=== PATIENT | female | born 1990 | race Caucasian/White ===

== ENCOUNTER 2019-09-09 10:07 | Emergency (ER) | payer OTHER, SELFPAY ==
[2019-09-09 10:15] VITALS: BP 111/57; PULSE 80; RESP 18; TEMP 37.2; O2SAT 100
--- NOTE | 2019-09-09 10:28 | ED.UPPEXIN ---
HPI - Extremity Injury (Upper) General Chief Complaint: Extremity Injury, Upper Stated Complaint: Left Shoulder Pain History of Present Illness HPI narrative: This is a 29-year-old female comes in complaining of left shoulder pain patient states that it hurts when she lifts her shoulder up is been going on for the past couple of days. Patient states that she has had this before and she knows it to be bursitis. Patient states that it kept her up all night and she is taken Tylenol and ibuprofen. Patient states that she needs to get some Toradol which helps with the pain. Related Data Allergies Allergy/AdvReac Type Severity Reaction Status Date / Time No Known Allergies Allergy Verified 09/09/19 10:12 Review of Systems Review of Systems: Narrative: CONSTITUTIONAL: Denies fever, chills, or sweats. EYES: Denies visual changes, redness, or discharge. ENT: Denies rhinorrhea, congestion, sore throat, or otalgia. CARDIOVASCULAR:Denies chest pain, palpitations, or edema. RESPIRATORY: Denies cough or dyspnea. GASTROINTESTINAL: Denies abdominal pain, nausea, vomiting, or diarrhea. GENITOURINARY: Denies dysuria or hematuria. SKIN:[Denies rash or itching. MUSCULOSKELETAL:Denies back pain, positive left shoulder joint pain, or myalgia. NEUROLOGIC: Denies headache, numbness, or weakness. PSYCHIATRIC:Denies anxiety or depression [facility]LY [facility] Family History Family History (Updated 03/20/19 @ 16:55 by DOCTOR UNKNOWN) Grandparent Family history of hypercholesterolemia Hypertension Family history of cardiovascular disease Family history of kidney disease Malignant neoplasm of prostate Mother Depression Hypertension Family history of cardiovascular disease Social History Social History Smoking status: Never smoker Second hand tobacco smoke exposure: No Alcohol intake: current Gender identity (if verbalized by the patient): Female Comments At time as signature, I have reviewed and agree with nursing past medical, social, surgical and family history. Please see nursing chart for further information. There is no relevant family history pertinent to the presenting complaint. Exam Narrative: Exam Narrative: GENERAL:Well-appearing, well-nourished, and in no acute distress. HEAD:Normocephalic, atraumatic. EYES: PERRLA and EOMI. ENT: Nares clear, no rhinorrhea or epistaxis. Mucous membranes moist. NECK: Supple. CHEST: Clear to auscultation. No respiratory distress. HEART: Regular rate and rhythm. No murmur heard. Normal peripheral pulses. ABDOMEN: Soft, nontender, nondistended, normal active bowel sounds. EXTREMITIES: Decreased left shoulder range of motion patient is unable to lift her arm rotated due to pain. No edema. SKIN: Warm, dry, no rash. NEURO: No focal deficits. Alert and oriented x3. 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 Patient also states that she will use methylprednisone and when she finishes that then she will start using the Toradol Vital Signs Vital signs: Vital Signs Temperature 99.0 F 09/09/19 10:15 Pulse Rate 80 09/09/19 10:15 Respiratory Rate 18 09/09/19 10:15 Blood Pressure 111/57 L 09/09/19 10:15 Pulse Oximetry 100 09/09/19 10:15 Temperature 99.0 F 09/09/19 10:15 Pulse Rate 80 09/09/19 10:15 Respiratory Rate 18 09/09/19 10:15 Blood Pressure 111/57 L 09/09/19 10:15 Pulse Oximetry 100 09/09/19 10:15 MDM - Extremity Injury (Upper) Differential Diagnosis Differential diagnosis: Likely dislocation of shoulder and other (Shoulder strain, bursitis, shoulder fracture) Discharge Plan Discharge Clinical Impression: Bursitis of left shoulder Patient Disposition: Home, Self-Care Condition: Stable Instructions: Ant
[2019-09-09] MEDS: KETOROLAC (*BKC) 60 MG/2 ML VIAL IM (10:32)
== END 2019-09-09 10:56 | disposition home or self-care (01) ==
PROVIDERS: Emergency Provider Nurse Practitioner Family; PCP Family Medicine
DX: M75.52 Bursitis of left shoulder (principal)
CPT/HCPCS: 96372; 99213; G0463; J1885

== ENCOUNTER → 2020-03-22 08:05 | Outpatient (CLI) | payer OTHER, SELFPAY ==
--- NOTE | ~2020-03-22 | XR_ITS ---
EXAMINATION: XR knee RT 2V DATE: 03/22/2020 08:53 INDICATION: Multiple joint pain. TECHNIQUE: 2 views of right knee were obtained. COMPARISON: None. FINDINGS: Bone alignment is normal. No fracture. Joint spaces are well maintained. There is no knee j oint effusion. IMPRESSION: 1. Normal right knee. Reviewed, dictated and finalized at location A. IMPRESSION: 1. Normal right knee.
--- NOTE | ~2020-03-22 | XR_ITS ---
EXAMINATION: XR shoulder RT min 2V DATE: 03/22/2020 08:53 INDICATION: Multiple joint pain. TECHNIQUE: 2 views of right shoulder were obtained. COMPARISON: None. FINDINGS: Bone alignment is normal. No fracture. There is mild acromioclavicular joint osteoarthritis . Glenohumeral joint is normal. IMPRESSION: 1. Mild right acromioclavicular joint osteoarthritis. Reviewed, dictated and finalized at location A.
--- NOTE | ~2020-03-22 | XR_ITS ---
EXAMINATION: XR foot LT 2V DATE: 03/22/2020 08:54 INDICATION: Multiple joint pain. TECHNIQUE: 2 views of left foot were obtained. COMPARISON: None. FINDINGS: Bone alignment is normal. No fracture. There is mild talonavicular joint osteoarthritis. IMPRESSION: 1. Mild talonavicular joint osteoarthritis. Reviewed, dictated and finalized at location A.
--- NOTE | ~2020-03-22 | XR_ITS ---
EXAMINATION: XR wrist RT 2V DATE: 03/22/2020 08:53 INDICATION: Multiple joint pain. TECHNIQUE: 2 views of right wrist were obtained. COMPARISON: None. FINDINGS: Bone alignment is normal. No fracture. Joint spaces are well maintained. IMPRESSION: 1. Normal right wrist. Reviewed, dictated and finalized at location A. IMPRESSION: 1. Normal right wrist.
--- NOTE | ~2020-03-22 | XR_ITS ---
EXAMINATION: XR elbow LT 2V DATE: 03/22/2020 08:53 INDICATION: Multiple joint pain. TECHNIQUE: 2 views of left elbow were obtained. COMPARISON: None. FINDINGS: Bone alignment is normal. No fracture. Joint spaces are well maintained. There is no elbow joint effusion. IMPRESSION: 1. Normal left elbow. Reviewed, dictated and finalized at location A. IMPRESSION: 1. Normal left elbow.
--- NOTE | ~2020-03-22 | XR_ITS ---
EXAMINATION: XR hand LT 2V DATE: 03/22/2020 08:54 INDICATION: Multiple joint pain. TECHNIQUE: 2 views of left hand were obtained. COMPARISON: None. FINDINGS: Bone alignment is normal. No fracture. Joint spaces are well maintained. IMPRESSION: 1. Normal left hand. Reviewed, dictated and finalized at location A. IMPRESSION: 1. Normal left hand.
--- NOTE | ~2020-03-22 | XR_ITS ---
EXAMINATION: XR knee LT 2V DATE: 03/22/2020 08:53 INDICATION: Multiple joint pain. TECHNIQUE: 2 views of left knee were obtained. COMPARISON: None. FINDINGS: Bone alignment is normal. No fracture. Joint spaces are well maintained. There is no knee j oint effusion. IMPRESSION: 1. Normal left knee. Reviewed, dictated and finalized at location A. IMPRESSION: 1. Normal left knee.
--- NOTE | ~2020-03-22 | XR_ITS ---
EXAMINATION: XR elbow RT 2V DATE: 03/22/2020 08:53 INDICATION: Multiple joint pain. TECHNIQUE: 2 views of right elbow were obtained. COMPARISON: None. FINDINGS: Bone alignment is normal. No fracture. Joint spaces are well maintained. There is no elbow joint effusion. IMPRESSION: 1. Normal right elbow. Reviewed, dictated and finalized at location A. IMPRESSION: 1. Normal right elbow.
--- NOTE | ~2020-03-22 | XR_ITS ---
EXAMINATION: XR wrist LT 2V DATE: 03/22/2020 08:53 INDICATION: Multiple joint pain. TECHNIQUE: 2 views of left wrist were obtained. COMPARISON: None. FINDINGS: Bone alignment is normal. No fracture. Joint spaces are well maintained. IMPRESSION: 1. Normal left wrist. Reviewed, dictated and finalized at location A. IMPRESSION: 1. Normal left wrist.
--- NOTE | ~2020-03-22 | XR_ITS ---
EXAMINATION: XR ankle LT 2V DATE: 03/22/2020 08:53 INDICATION: Multiple joint pain. TECHNIQUE: 2 views of left ankle were obtained. COMPARISON: None. FINDINGS: Bone alignment is normal. No fracture. There is mild midfoot osteoarthritis. IMPRESSION: 1. Mild midfoot osteoarthritis. Reviewed, dictated and finalized at location A.
--- NOTE | ~2020-03-22 | XR_ITS ---
EXAMINATION: XR hand RT 2V DATE: 03/22/2020 08:53 INDICATION: Multiple joint pain. TECHNIQUE: 2 views of right hand were obtained. COMPARISON: None. FINDINGS: Bone alignment is normal. No fracture. Joint spaces are well maintained. IMPRESSION: 1. Normal right hand. Reviewed, dictated and finalized at location A. IMPRESSION: 1. Normal right hand.
--- NOTE | ~2020-03-22 | XR_ITS ---
EXAMINATION: XR shoulder LT min 2V DATE: 03/22/2020 08:53 INDICATION: Multiple joint pain. TECHNIQUE: 2 views of left shoulder were obtained. COMPARISON: None. FINDINGS: Bone alignment is normal. No fracture. Joint spaces are normal. IMPRESSION: 1. Normal left shoulder. Reviewed, dictated and finalized at location A. IMPRESSION: 1. Normal left shoulder.
--- NOTE | ~2020-03-22 | XR_ITS ---
EXAMINATION: XR foot RT 2V DATE: 03/22/2020 08:53 INDICATION: Multiple joint pain. TECHNIQUE: 2 views of right foot were obtained. COMPARISON: None. FINDINGS: Bone alignment is normal. No fracture. There is mild talonavicular joint osteoarthritis. IMPRESSION: 1. Mild talonavicular joint osteoarthritis. Reviewed, dictated and finalized at location A.
--- NOTE | ~2020-03-22 | XR_ITS ---
EXAMINATION: XR ankle RT 2V DATE: 03/22/2020 08:53 INDICATION: Multiple joint pain. TECHNIQUE: 2 views of right ankle were obtained. COMPARISON: None. FINDINGS: Bone alignment is normal. No fracture. There is mild osteoarthritis of talonavicular joint. IMPRESSION: 1. Mild osteoarthritis of talonavicular joint. Reviewed, dictated and finalized at location A.
== END ==
PROVIDERS: Visit Provider Internal Medicine Rheumatology
DX: M25.50 Pain in unspecified joint (principal); M19.072 Primary osteoarthritis, left ankle and foot; M19.071 Primary osteoarthritis, right ankle and foot; M19.011 Primary osteoarthritis, right shoulder
CPT/HCPCS: 73030; 73070; 73100; 73120; 73560; 73600; 73620

== ENCOUNTER 2020-06-14 10:39 | Day surgery (SDC) | payer OTHER, SELFPAY ==
[2020-06-14] VITALS (12 sets, daily range): BP systolic 96–122; BP diastolic 52–74; PULSE 65–90; RESP 13–20; TEMP 36.1–37.2; O2SAT 100
--- NOTE | ~2020-06-14 | US_ITS ---
EXAMINATION: US pelvic complete w TV DATE: 06/14/2020 13:46 INDICATION: Right lower quadrant pain Comparison:No prior studies for comparison. TECHNIQUE: Multiple transabdominal and endovaginal sonographic images of the pelvis performed. FINDINGS: The uterus measures 6.9 x 3.2 x 4.3 cm. The endometrial complex measures 4 mm. There is an IUD present in expected position. There is a calcified mass contiguous with the uterus measuring 2.5 x 2.4 x 2.2 cm, likely an exophytic fibroid. The right ovary measures 10.5 x 5.6 x 11.2 cm and the left ovary measures 3 x 2 x 3.5 cm. There are small follicles in each ovary. There are right ovarian cysts, largest on the right measuring up to 7. 4 cm. There is an echogenic mass in the left ovary with posterior acoustic enhancement measuring 2.3 cm greatest dimension. There is no free fluid in the pelvis. There are no abnormal masses seen on either side. IMPRESSION: 1. Calcified mass contiguous with the uterus measuring up to 2.5 cm, likely an exophytic calcified ut erine fibroid. Consider CT correlation. 2: Large right ovarian cysts, largest measuring up to 7.4 cm maximum dimension. These are most likel y benign functional cysts, although cystadenoma/cystadenocarcinoma is not excluded. 3: Round hyperechoic left ovarian mass measuring 2.3 cm, likely an involuting corpus luteal cyst. Reviewed, dictated and finalized at location A. [employer] IMPRESSION: 1. Calcified mass contiguous with the uterus measuring up to 2.5 cm, likely an exophytic calcified uterine fibroid. Consider CT correlation. 2: Large right ovarian cysts, largest measuring up to 7.4 cm maximum dimension . These are most likely benign functional cysts, although cystadenoma/cystadeno carcinoma is not excluded. 3: Round hyperechoic left ovarian mass measuring 2.3 cm, likely an involuting c orpus luteal cyst.
[2020-06-14 11:20] LABS: Basophils Percent Auto 0.4 % (0.2-1.2); Eosinophils Absolute Auto 0.1 K/mm3 (0-0.3); Eosinophils Percent Auto 1.3 % (0-4.4); Hematocrit 37.6 % (37.0-47.0); Immature Granulocyte Absolute 0.01 K/mm3 (0.00-0.031); Immature Granulocyte Percent A 0.2 % (0-0.5); Lymphocytes Absolute Auto 1.23 K/mm3 (0.9-3.2); Lymphocytes Percent Auto 23.3 % (18.3-44.2); Mean Corpuscular HGB Conc 34.6 g/dl (32-36); Mean Corpuscular Hemoglobin 32.3 pg (26-34); Mean Corpuscular Volume 93.3 fl (80-100); Mean Platelet Volume 10.4 fl (7.4-10.4); Monocytes Absolute Auto 0.6 K/mm3 (0.1-0.6); Monocytes Percent Auto 10.6 % (2.6-8.5); Neutrophils Absolute Auto 3.4 K/mm3 (1.3-6.7); Neutrophils Percent Auto 64.2 % (45.5-73.1); Platelet Count Result 264 k/mm3 (150-375); Red Blood Count 4.03 M/mm3 (4.2-5.4); Red Cell Distribution Width 12.3 % (11.5-14.5); White Blood Count 5.3 K/mm3 (4.5-10.0)
[2020-06-14 11:26] LABS: Add Urine Microscopic? NO; Appearance Urine Clear (Clear); Bilirubin Urine Negative (Negative); Blood Urine Negative (Negative); Color Urine Colorless (Yellow); Glucose Urine UA Negative (Negative); Ketones Urine Negative (Negative); Leukocyte Esterase Ur Negative LEU/UL (Negative); Nitrate Urine Negative (Negative); Protein Urine Negative (Negative); Urobilinogen Urine Negative mg/dL (<2.0)
[2020-06-14 11:31] LABS: Alanine Aminotransferase 12 U/L (4-35); Albumin Level 3.8 g/dL (3.5-5.1); Alkaline Phosphatase 49 U/L (38-126); Anion Gap 5 mmol/L (8-16); Aspartate Amino Transferase 21 U/L (14-36); Bilirubin,Total 0.5 mg/dL (0.2-1.3); Blood Urea Nitrogen 8 mg/dL (7-17); Calcium 8.2 mg/dL (8.4-10.2); Carbon Dioxide 26 mmol/L (22-30); Chloride 107 mmol/L (98-107); Estimated CRCL calculation 100 ml/min; Estimated Glomerular Filt Rate > 60; Glucose 90 mg/dL (65-105); Lipase 47 U/L (23-300); Potassium 3.8 mmol/L (3.4-5.0); Sodium 138 mmol/L (137-145)
[2020-06-14 11:32] LABS: Specific Grav Ur 1.044 (1.001-1.035)
--- NOTE | 2020-06-14 12:46 | ED.ABDPAIN ---
HPI - Abdominal Pain General Chief Complaint: Abdominal Pain <MARK Aldridge Last Filed: 06/14/20 16:55> Stated Complaint: poss ovarian issue per pcp <MARK Aldridge Last Filed: 06/14/20 16:55> Time Seen by Provider: 06/14/20 12:07 <MARK Aldridge Last Filed: 06/14/20 16:55> Source: patient <MARK Aldridge Last Filed: 06/14/20 16:55> Mode of arrival: ambulatory <MARK Aldridge Last Filed: 06/14/20 16:55> Limitations: no limitations <MARK Aldridge Last Filed: 06/14/20 16:55> History of Present Illness HPI narrative: This is a 29 year old female that presents to the ER for intermittent right sided pelvic pain over the last 3 days. Reports an achy pain in the RLQ. Reports she was seen at urgent care this morning and sent here for further evaluation for possible ovarian torsion. Denies fever, nausea, vomiting, or dysuria. <MARK Aldridge Last Filed: 06/14/20 16:55> Related Data Allergies/Adverse Reactions: Allergies Allergy/AdvReac Type Severity Reaction Status Date / Time No Known Allergies Allergy Verified 06/14/20 11:00 <MARK Aldridge Last Filed: 06/14/20 16:55> Review of Systems Review of Systems: Narrative: CONSTITUTIONAL: Denies fever GASTROINTESTINAL: Reports abdominal/pelvic pain. Denies nausea, vomiting, or diarrhea. GENITOURINARY: Denies dysuria or hematuria. <MARK Aldridge Last Filed: 06/14/20 16:55> All systems reviewed & are unremarkable except as noted in HPI and below <MARK Aldridge Last Filed: 06/14/20 16:55> PMFSH Past Medical History Medical History: Medical History No active medical problems <MARK Aldridge Last Filed: 06/14/20 16:55> Surgical History Surgical History: Surgical History History of section <Theresa Perez PA-C - Last Filed: 06/14/20 16:55> Family History Family History: Family History Grandparent Family history of hypercholesterolemia Hypertension Family history of cardiovascular disease Family history of kidney disease Malignant neoplasm of prostate Mother Depression Hypertension Family history of cardiovascular disease <Theresa Perez PA-C - Last Filed: 06/14/20 16:55> Social History Social History: Social History Smoking status: Never smoker Second hand tobacco smoke exposure: No Alcohol intake: current Gender identity (if verbalized by the patient): Female <Theresa Perez PA-C - Last Filed: 06/14/20 16:55> Exam Narrative: Exam Narrative: GENERAL: Well-appearing, well-nourished, and in no acute distress. HEAD: Normocephalic, atraumatic. EYES: EOMI. CHEST: Clear to auscultation. No respiratory distress. No wheezes rales or rhonchi HEART: Regular rate and rhythm. No murmur heard. Normal peripheral pulses. ABDOMEN: Soft, nondistended, normal active bowel sounds. Mild tenderness to palpation in the right lower quadrant, without guarding EXTREMITIES: Normal range of motion. No edema. SKIN: Warm, dry, no rash. NEURO: No focal deficits. Alert and oriented x3. 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 Agree with current evaluation and treatment. <Cuong Holley MD - Last Filed: 06/14/20 17:21> Consultations Consultation #1: Spoke with Dr. Remy Engel about patient and workup. Patient will be taken to the OR for pelvic laparoscopy with cyst removal. <MARK Aldridge Filed: 06/14/20 16:55> Date: 06/14/20 <Theresa Perez P
[2020-06-14] MEDS: SODIUM CHLORIDE 0.9% IV 1,000 ML 999 ML IV CONT (14:41)
--- NOTE | 2020-06-14 16:45 | PM.IMHP ---
H&P: HPI History of Present Illness Date/Time: 06/14/20 16:45 Chief Complaint: rlq pain Narrative: Enid Khan is a 29 year old female G0 was admitted from the ER. She was seen in [place] complaining of right lower quadrant pain she has a an ultrasound which shows a normal size uterus with the IUD in place but there is a mass min on the right measuring 10.5x5.6 bilateral 0.2 and a serous cystadenoma versus torsion is present. She is admitted and will undergo laparoscopy with possible right salpingo-oophorectomy risks and benefits were reviewed Review of Systems Review of Systems: All systems reviewed & are unremarkable except as noted in HPI and below PMFSH Past Medical History Medical History No active medical problems Surgical History Surgical History History of section Family History Family History Grandparent Family history of hypercholesterolemia Hypertension Family history of cardiovascular disease Family history of kidney disease Malignant neoplasm of prostate Mother Depression Hypertension Family history of cardiovascular disease Social History Social History Smoking status: Never smoker Second hand tobacco smoke exposure: No Alcohol intake: current Gender identity (if verbalized by the patient): Female Meds Home Medications and Allergies Home Medications Medication Instructions Recorded Confirmed Type No Home Medications 06/14/20 06/14/20 History Allergies Allergy/AdvReac Type Severity Reaction Status Date / Time No Known Allergies Allergy Verified 06/14/20 11:00 Vital Signs Vital Signs - 24 hr 06/14/20 10:57 06/14/20 14:01 06/14/20 15:01 Temperature 97.3 F L 97.8 F Pulse Rate 88 76 72 Respiratory Rate 20 18 18 Blood Pressure 115/60 102/60 101/65 Pulse Oximetry 100 100 100 06/14/20 16:01 Temperature 98.0 F Pulse Rate 68 Respiratory Rate 18 Blood Pressure 99/56 L Pulse Oximetry 100 Exam Const: General: no acute distress Eyes: General: appearance normal, both eyes and all related structures Neck: Neck: supple and no JVD Thyroid: thyroid normal Resp: Effort & Inspection: normal respiratory effort Auscultation: clear to auscultation bilaterally Cardio: Rate: regular rate Rhythm: regular rhythm GI: Inspection: non-distended GI Palp: Yes Soft to palpation, No Tenderness to palpation present (GI) and No Guarding due to palpation present (GI) Auscultation: normal bowel sounds : General: Yes bimanual renal exam normal bilaterally (This was not repeated preop due to the ultrasound findings in severe pain) Skin: General skin exam: no rashes or lesions noted Extrem: General: normal to inspection and no edema Psych: Mental Status: mental status grossly normal Affect: normal affect H&P: Results Labs Labs: Short CBC 06/14/20 Range/Units 11:05 WBC 5.3 (4.5-10.0) K/mm3 Hgb 13.0 (12.0-15.0) g/dL Hct 37.6 (37.0-47.0) % Plt Count 264 (150-375) k/mm3 BMP 06/14/20 11:05 Sodium 138 Potassium 3.8 Chloride 107 Carbon Dioxide 26 BUN 8 Creatinine 0.60 L Glucose 90 Calcium 8.2 L Liver Function 06/14/20 Range/Units 11:05 Total Bilirubin 0.5 (0.2-1.3) mg/dL AST 21 (14-36) U/L ALT 12 (4-35) U/L Alkaline Phosphatase 49 (38-126) U/L Albumin 3.8 (3.5-5.1) g/dL Urine 06/14/20 Range/Units 11:13 Urine Color Colorless (Yellow) Urine Appearance Clear (Clear) Urine pH 6.0 (5.0-9.0) Ur Specific [place] 1.044 H (1.001-1.035) Urine Protein Negative (Negative) mg/dL Urine Glucose (UA) Negative (Negative) mg/dL Assessment and Plan Additional Plan Impression is enlarged right ovary and tube with suspected serous cystade
--- NOTE | 2020-06-14 16:58 | WPDHPUPDATE1 ---
History and Physical Update Update Date/Time: 06/14/20 16:58 History and Physical has been reviewed, including an updated exam of the patient. There are NO changes in the patient's condition. Risks, benefits, and alternatives have been discussed and questions answered. Patient agrees to proceed with procedure.
--- NOTE | 2020-06-14 17:44 | WPDANESEPPF ---
Anes - Initial Pre Proc Eval Procedure: Operation Date: 06/14/20 18:00 Proposed Procedures p DIAGNOSTIC LAPARASOCOPY, RIGHT OVARIAN CYSTECTOMY, POSSIBLE RIGHT SALPINGO-OOPHERECTOMY - Darius Hernandez MD Date/Time: 06/14/20 17:44 Surgeon: Darius Hernandez MD Pre Op Diagnosis: poss ovarian issue per pcp Patient Data Age: 29 Gender: F Height: 1.63 m Weight: 58.9 kg Last Vital Signs Temp 36.7 C 06/14/20 16:01 Pulse 79 06/14/20 17:20 Resp 18 06/14/20 16:01 BP 118/65 06/14/20 17:20 Pulse Ox 100 06/14/20 17:20 Allergies Allergy/AdvReac Type Severity Reaction Status Date / Time No Known Allergies Allergy Verified 06/14/20 11:00 Home Medications Medication Instructions Recorded Confirmed Type hydrocodone-acetaminophen [[place]] 1 tablet PO Q4H PRN #30 tablet 06/14/20 Rx Laboratory Tests 06/14/20 06/14/20 06/14/20 11:05 11:05 11:13 WBC 5.3 K/mm3 K/mm3 (4.5-10.0) RBC 4.03 M/mm3 L M/mm3 (4.2-5.4) Hgb 13.0 g/dL g/dL (12.0-15.0) Hct 37.6 % % (37.0-47.0) MCV 93.3 fl fl (80-100) MCH 32.3 pg pg (26-34) MCHC 34.6 g/dl g/dl (32-36) RDW 12.3 % % (11.5-14.5) Plt Count 264 k/mm3 k/mm3 (150-375) MPV 10.4 fl fl (7.4-10.4) Immature Gran % (Auto) 0.2 % % (0-0.5) Neut % (Auto) 64.2 % % (45.5-73.1) Lymph % (Auto) 23.3 % % (18.3-44.2) [place] % (Auto) 10.6 % H % (2.6-8.5) Eos % (Auto) 1.3 % % (0-4.4) Baso % (Auto) 0.4 % % (0.2-1.2) Lymph # (Auto) 1.23 K/mm3 K/mm3 (0.9-3.2) [place] # (Auto) 0.6 K/mm3 K/mm3 (0.1-0.6) Eos # (Auto) 0.1 K/mm3 K/mm3 (0-0.3) Baso # (Auto) 0.0 K/mm3 K/mm3 (0.0-0.1) Abs Immat Gran (auto) 0.01 K/mm3 K/mm3 (0.00-0.031) Absolute Neuts (auto) 3.4 K/mm3 K/mm3 (1.3-6.7) Absolute Nucleated RBC 0.0 K/mm3 K/mm3 (0.0-0.012) Nucleated RBC % 0.0 % % (0.0-0.2) Sodium 138 mmol/L mmol/L (137-145) Potassium 3.8 mmol/L mmol/L (3.4-5.0) Chloride 107 mmol/L mmol/L (98-107) Carbon Dioxide 26 mmol/L mmol/L (22-30) Anion Gap 5 mmol/L L mmol/L (8-16) BUN 8 mg/dL mg/dL (7-17) Creatinine 0.60 mg/dL L mg/dL (0.7-1.0) Estim Creat Clear Calc 100 ml/min ml/min Estimated GFR > 60 (59 - ) Glucose 90 mg/dL mg/dL (65-105) Calcium 8.2 mg/dL L mg/dL (8.4-10.2) Total Bilirubin 0.5 mg/dL mg/dL (0.2-1.3) AST 21 U/L U/L (14-36) ALT 12 U/L U/L (4-35) Alkaline Phosphatase 49 U/L U/L (38-126) Total Protein 7.0 g/dL g/dL (6.3-8.2) Albumin 3.8 g/dL g/dL (3.5-5.1) Lipase 47 U/L U/L (23-300) Urine Color Colorless (Yellow) Urine Appearance Clear (Clear) Urine pH 6.0 (5.0-9.0) Ur Specific [place] 1.044 H (1.001-1.035) Urine Protein Negative mg/dL mg/dL (Negative) Urine Glucose (UA) Negative mg/dL mg/dL (Negative) Urine Ketones Negative mg/dL mg/dL (Negative) Ur Blood (Man) Negative (Negative) Urine Nitrate Negative (Negative) Urine Bilirubin Negative (Negative) Urine Urobilinogen Negative mg/dL mg/dL (<2.0) Leukocyte Esterase Rfl Negative GONZALEZ/UL GONZALEZ/UL (Negative) Patient hx anesthesia problems: none Family hx anesthesia problems: none PMFSH Past Medical History Medical History No active medical problems Surgical History Surgical History History of section Family History Family History Grandparent Fa
[2020-06-14] MEDS: LACTATED RINGERS 1,000 ML 30 ML IV CONT ×2 (17:45→19:15)
[2020-06-14] MEDS: ceFAZolin SODIUM 1 GM VIAL 2 GM IV PUSH (18:46)
--- NOTE | 2020-06-14 19:06 | PM.PROC ---
Procedure Note - Detailed Date of procedure: 06/14/20 Pre-op diagnosis: poss ovarian issue per pcp Surgeon: Darius Hernandez MD Postop diagnosis: Torsion of right ovary with dermoid cyst Procedure: Laparoscopic right oophorectomy Anesthesia: General endotracheal EBL: 25cc Findings: A huge dermoid cyst on the right with torsion x2. This and [place] the entire ovary. The tube was able to be salvaged. Normal-appearing uterus. Small benign left ovarian cyst Complications: None Description of procedure: The patient was prepped draped sterile fashion placed in the dorsal lithotomy position. Under excellent general endotracheal anesthesia weighted speculum was placed in posterior fornix of vagina. Anterior lip of the cervix grasped with a single-tooth tenaculum the Stanton's cannula inserted attached to the single-tooth to be used later for uterine manipulation. The weighted speculum was removed and bladder was emptied of clear urine. Gloves were changed. An infraumbilical incision made the Veress needle passed in the abdomen. The abdomen filled with CO2 gas [id number]. The 5mm trocar advanced under direct visualization assuring injury. The patient placed in Trendelenburg and a this large ovarian cyst with torsion x2 was seen. Photo documentation was undertaken. Suprapubic incision made the 5mm trocar advanced under direct visualization assuring no injury. The ovary was then un torsed a as a right lower quadrant incision made the 10mm trocar advanced under direct visualization assuring no injury. The tube was sharply dissected away as it appeared to have good blood supply. The ovary itself was completely encased in this dermoid cyst and the blood supply appeared tenuous. The infundibulopelvic structure on the right was then clamped, burned, cut and brought across the infundibulopelvic structure. The ovary was placed in an Endo-Catch and was removed piecemeal left through the right lower quadrant incision irrigation was undertaken until clear. All pedicles appeared dry. The lower sites removed after vigorous irrigation and undertaken and blood loss estimated 25cc. The incisions were closed with 4 O Monocryl and glue after the gas had been removed. The patient was awakened. She went to recovery in satisfactory condition. All sponge, needle, instrument counts were correct. There were no immediate complications
[2020-06-14] MEDS: fentaNYL CITRATE INJ (*CRX) 100 MCG/2 ML VIAL 25 MCG IV PUSH ×4 (19:30→19:50)
[2020-06-14] MEDS: oxyCODONE HCL (*CRX) 5 MG TAB IR PO (20:20)
== END 2020-06-14 21:05 | disposition home or self-care (01) ==
LOC: ANHED 16:53 → ANHSURGERY 16:56
PROVIDERS: Emergency Medicine; Emergency Provider Emergency Medicine; PCP Family Medicine; Visit Provider Obstetrics & Gynecology
PROC: (CPT 49320; principal; 2020-06-14 18:00)
DX: D27.0 Benign neoplasm of right ovary (principal); N83.511 Torsion of right ovary and ovarian pedicle
CPT/HCPCS: 58661; 36415; 76830; 76856; 80053; 81003; 81025; 83690; 85025; 86850; 86900; 86901; 88305; 88307; 96361; 96374; 99285; A9270; J0131; J0330; J0690; J1100; J2250; J2405; J2704; J3010; J7030; J7120

== ENCOUNTER 2022-07-02 08:06 | Emergency (ER) | payer BC, SELFPAY ==
--- NOTE | 2022-07-02 08:08 | ED.URI ---
HPI - URI/Sore Throat General Chief Complaint: Upper Respiratory Infection Stated Complaint: sorethroat Time Seen by Provider: 07/02/22 08:13 Source: patient, RN notes reviewed and old records reviewed Mode of arrival: ambulatory Limitations: no limitations History of Present Illness HPI Narrative: 31-year-old female presents to the [facility] with complaints of a sore throat for approximately 2 weeks. Patient has taken ibuprofen. Denies taking any other medications patient denies any other symptoms. Denies abdominal pain, nausea, vomiting, ear pain, nasal congestion. denies fever reports taking a COVID test last night which she reports as negative MD elicited complaint: sore throat Onset (ago): week(s) (2) Related Data Home Medications Medication Instructions Recorded Confirmed hydroxychloroquine 200 mg tablet 200 mg PO DIRECTED 07/02/22 07/02/22 Allergies Allergy/AdvReac Type Severity Reaction Status Date / Time No Known Allergies Allergy Verified 06/14/20 11:00 Review of Systems Review of Systems: All systems reviewed & are unremarkable except as noted in HPI and below Constitutional: Constitutional: Reports no additional constitutional complaints Eyes: Eyes: Reports no additional eye complaints ENT: Reports as per HPI and Reports sore throat Cardiovascular: Cardiovascular: Reports no additional cardiovascular complaints, Denies chest pain and Denies dyspnea Respiratory: Respiratory: Reports no additional respiratory complaints, Denies chest congestion, Denies cough and Denies dyspnea Gastrointestinal: Gastrointestinal: Reports no additional gastrointestinal complaints, Denies abdominal pain, Denies nausea and Denies vomiting Musculoskeletal: Musculoskeletal: Reports no additional musculoskeletal complaints Integumentary/Breasts: Skin/Breast: Reports system reviewed and no additional complaints, except as docu Neurologic: Reports system reviewed and no additional complaints, except as documented Psychiatric: Psychiatric: Reports no additional psychiatric complaints Allergic/Immunologic: Allergic/Immunologic: Reports no additional allergic/immunologic complaints [facility] Past Medical History Medical History (Updated 07/02/22 @ 08:58 by Brianne Hodgson APRN) FH: thyroid disease No active medical problems Rheumatoid arthritis Surgical History Surgical History (Updated 07/02/22 @ 08:57 by Brianne Hodgson APRN) History of section History of right oophorectomy Family History Family History Grandparent Family history of hypercholesterolemia Hypertension Family history of cardiovascular disease Family history of kidney disease Malignant neoplasm of prostate Mother Depression Hypertension Family history of cardiovascular disease Social History Social History Smoking status: Never smoker Second hand tobacco smoke exposure: No Alcohol intake: current Gender identity (if verbalized by the patient): Female Comments At the time of my signature, I reviewed and agree with the nursing past medical, surgical, social, and family history. There is no relevant family history pertinent to the patient complaint. Exam Const: General: cooperative, healthy appearing, comfortable, no acute distress, well developed, alert and well nourished Nutritional Appearance: well nourished Orientation/consciousness: patient oriented x3 Limitations: no limitations HENMT: Head: normal to inspection Ears: hearing grossly normal bilaterally and external ears normal Face/Nose/Sinus: Normal external nose present, Normal nares present, Normal nasal mucous membranes and turbinates present and normal facial exam Face and sinus: normal facial exam Mouth: Yes Normal oral and palatal mucosa present, Yes lip normal and Yes moist mucous membranes Throat: posterior oropharynx normal, tonsils
[2022-07-02 08:15] VITALS: BP 131/69; PULSE 95; RESP 18; TEMP 36.2; O2SAT 100
== END 2022-07-02 08:40 | disposition home or self-care (01) ==
PROVIDERS: Emergency Provider Nurse Practitioner; PCP Nurse Practitioner
DX: J02.9 Acute pharyngitis, unspecified (principal); M06.9 Rheumatoid arthritis, unspecified
CPT/HCPCS: 87081; 87880; 99213; G0463

== ENCOUNTER 2024-03-08 10:47 | Outpatient (CLI) | payer BC, SELFPAY ==
--- NOTE | ~2024-03-08 | XR_ITS ---
EXAMINATION: XR hysterosalpingogram DATE: 03/08/2024 12:43 INDICATION: Infertility TECHNIQUE: Multiple fluoroscopic images were obtained during contrast infusion into the endometrial c anal of the uterus by the primary physician. Fluoroscopy exposure time was 0.9 minutes. Total DAP was 4.6 Gycm^2. A total of 4 fluoroscopic images were recorded FINDINGS: The anteverted uterine cavity demonstrates normal morphology. The fallopian tubes are normal in elizabeth cornel and patent bilaterally. There is normal spillage of contrast into the peritoneum on both sides. IMPRESSION: 1. Normal hysterosalpingogram. Reviewed, dictated and finalized at location A.
[2024-03-08 11:44] LABS: Beta HCG Quantitative < 2.39 mIU/ML
== END 2024-03-08 10:48 | disposition home or self-care (01) ==
PROVIDERS: PCP Nurse Practitioner; Visit Provider Obstetrics & Gynecology
DX: Z31.41 Encounter for fertility testing (principal)
CPT/HCPCS: 36415; 58340; 74740; 84702; Q9966